=== PATIENT | male | born 1975 | race Caucasian/White ===

== ENCOUNTER 2017-08-31 09:04 | Emergency (ER) | payer BC ==
[2017-08-31 09:07] VITALS: BP 125/85; PULSE 76; RESP 18; TEMP 98.2
[2017-08-31] MEDS ORDERED: PROPARACAINE 0.5% OPHTH DROPS 15 ML BTL BOTH EYES STA (09:14)
[2017-08-31] MEDS ORDERED: ERYTHROMYCIN 5 MG/GM OPHTH OINT 3.5 GM TUBE BOTH EYES STA (09:15)
--- NOTE | 2017-08-31 09:15 | ED ---
Eye Problem HPI - General Chief complaint: Eye Problems Stated complaint: Eye Problems Source: patient, RN notes reviewed, old records reviewed Mode of arrival: ambulatory Limitations: no limitations - History of Present Illness Initial comments: This Patient is a 42-year-old male presents emergency department today chief complaint of left eye pain. 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 He believes that there is a piece of foreign body, metal within the eye. Patient states that his eye has been increasingly painful today and injected. No significant eye drainage. He does not wear contacts or glasses. Patient states that he has had increased blurry vision due to increased watering. Patient denies any other symptoms. - Related Data Previous Rx's Medication Instructions Recorded Erythromycin Ophth Oint [Romycin 1 applic LEFT EYE QID #1 tube 08/31/17 Ophth Oint] Allergies Allergy/AdvReac Type Severity Reaction Status Date / Time No Known Allergies Allergy Verified 08/31/17 09:08 Review of Systems ROS Statement: Those systems with pertinent positive or pertinent negative responses have been documented in the HPI. ROS Other: All systems not noted in ROS Statement are negative. Past Medical History Past Medical History: Asthma History of Any Multi-Drug Resistant Organisms: None Reported Past Surgical History: Orthopedic Surgery Additional Past Surgical History / Comment(s): Bilateral knee arthroscopy, Vasectomy Past Anesthesia/Blood Transfusion Reactions: No Reported Reaction Past Psychological History: No Psychological Hx Reported Smoking Status: Former smoker Past Alcohol Use History: Occasional Past Drug Use History: None Reported General Exam - General Exam Comments Initial Comments: 42-year-old male. Alert and oriented. No significant distress. Limitations: no limitations General appearance: alert, in no apparent distress Head exam: Present: atraumatic, normocephalic, normal inspection Eye exam: Present: PERRL, EOMI. Absent: normal appearance (Left eye has conjunctival injection. Evidence of metal foreign body fragment at the 6 o' clock position within the iris. No rust ring at this time.), scleral icterus, conjunctival injection, periorbital swelling ENT exam: Present: normal exam, mucous membranes moist Neck exam: Present: normal inspection. Absent: tenderness, meningismus, lymphadenopathy Respiratory exam: Present: normal lung sounds bilaterally. Absent: respiratory distress, wheezes, rales, rhonchi, stridor Cardiovascular Exam: Present: regular rate, normal rhythm, normal heart sounds. Absent: systolic murmur, diastolic murmur, rubs, gallop, clicks Psychiatric exam: Present: normal affect, normal mood Skin exam: Present: warm, dry, intact, normal color. Absent: rash Course Vital Signs 08/31/17 09:04 Temperature 98.2 F Pulse Rate 76 Respiratory 18 Rate Blood Pressure 125/85 O2 Sat by Pulse 97 Oximetry Medical Decision Making - Medical Decision Making This is a 42-year-old male presents emergency Department that she played a foreign body within the left eye. He has a small piece middle the 6 o'clock position. This was visualized with fluorescein eye stain and [place]. Was able to remove the entire foreign body with the [place] brush. Patient tolerated the procedure well. We will put the Patient on erythromycin eye ointment. He' ll be on every 4 hours. Discussed follow-up with ophthalmology if symptoms continue to persist or worsen. Patient agrees to treat plan will comply. Return parameters were discussed. Disposition Clinical Impression: Foreign body of left eye Disposition: HOME SELF-CARE Condition: Good Instructions: Eye Foreign Body (ED) Additional Instructions: Patient advised to apply the antibiotic ointment to the eye every 4 hours. Patient should follow-up with ophthalmology if symptoms continue to persist. Return to the emergency department if any alarming signs or symptoms occur. Prescriptions: Erythromycin Ophth Oint [Romycin Ophth Oint] 1 applic LEFT EYE QID #1 tube Is patient prescribed a controlled substance at d/c from ED?: No Referrals: Butch Zacarias DO [Primary Care Provider] - 1-2 days Angela Cagle MD [STAFF PHYSICIAN] - 1-2 days Time of Disposition: 09:41
== END 2017-08-31 09:48 | disposition home or self-care (01) ==
LOC: EC 09:04
DX: T15.92XA Foreign body on external eye, part unspecified, left eye, initial encounter (principal); Z87.891 Personal history of nicotine dependence
CPT/HCPCS: 65205; 99283

== ENCOUNTER 2018-07-23 04:59 | Emergency (ER) | payer BC ==
[2018-07-23 05:08] VITALS: BP 136/86; PULSE 74; RESP 20; TEMP 98.3
[2018-07-23] MEDS ORDERED: FLUORESCEIN STRIPS 1 MG STRIP LEFT EYE ONE (05:16)
[2018-07-23] MEDS ORDERED: PROPARACAINE 0.5% OPHTH DROPS 15 ML BTL LEFT EYE STA (05:16)
--- NOTE | 2018-07-23 05:18 | ED ---
Eye Problem HPI - General Chief complaint: Eye Problems Stated complaint: Eye Problems Time Seen by Provider: 07/23/18 05:16 Source: patient Mode of arrival: ambulatory Limitations: no limitations - History of Present Illness Initial comments: Adan is a 43 yo male who presents to the ER today for evaluation of left eye redness and foreign body sensation. patient reports that for about a week he has had the sensation of sand in his left eye. He has tried washing the eye out and continues to have the sensation. He denies any incident in which he recalls getting something in his eye. He believes he just woke feeling like this one morning. He denies any trauma. He denies pain with movement of the eye or pain/pressure of the eye. He has not been using any eye drops, he is not a contact wearer. MD chief complaint: eye pain, eye redness Onset/Timin -: week(s) Location: left eye Place: home If Injury: none Eye Symptoms: redness, foreign body sensation Severity: mild Consistency: constant Associated Symptoms: none Treatments Prior to Arrival: none - Related Data Allergies Allergy/AdvReac Type Severity Reaction Status Date / Time No Known Allergies Allergy Verified 08/31/17 09:38 Review of Systems ROS Statement: Those systems with pertinent positive or pertinent negative responses have been documented in the HPI. ROS Other: All systems not noted in ROS Statement are negative. Past Medical History Past Medical History: Asthma History of Any Multi-Drug Resistant Organisms: None Reported Past Surgical History: Orthopedic Surgery Additional Past Surgical History / Comment(s): Bilateral knee arthroscopy, Vasectomy Past Anesthesia/Blood Transfusion Reactions: No Reported Reaction Past Psychological History: No Psychological Hx Reported Smoking Status: Former smoker Past Alcohol Use History: Rare Past Drug Use History: None Reported General Exam Limitations: no limitations General appearance: alert, in no apparent distress Head exam: Present: atraumatic, normocephalic Eye exam: Present: PERRL, EOMI, conjunctival injection. Absent: scleral icterus, nystagmus, periorbital swelling, periorbital tenderness Pupils: Present: normal accommodation Expanded Eyelids: Normal Inspection: Left (well healed surgical repair of droopy eyelid) Pupils: Regular, Round: Bilateral, Reactive: Bilateral Sclera/Conjunctival: Injection: Left ENT exam: Present: normal exam Neck exam: Present: full ROM. Absent: lymphadenopathy Respiratory exam: Absent: respiratory distress Cardiovascular Exam: Present: regular rate GI/Abdominal exam: Absent: distended Rectal exam: Present: deferred Extremities exam: Present: full ROM Back exam: Present: full ROM Neurological exam: Present: alert, oriented X3 Psychiatric exam: Present: normal affect, normal mood Skin exam: Present: warm, dry, intact Course Vital Signs 07/23/18 05:04 Temperature 98.3 F Pulse Rate 74 Respiratory 20 Rate Blood Pressure 136/86 O2 Sat by Pulse 93 L Oximetry Medical Decision Making - Medical Decision Making patient was seen and evaluated, history obtained from patient hx of foreign body sensation x1 week exam with conjunctiva injection, erythema otherwise unremarkable orellana light exam with no corneal abrasion, possible keratitis - patient denies any sun/bright light/welding exposure, denies chemical exposure Will treat with erythromycin ointment and referral to optho for follow up PAtient expressed understanding and agreement with plan Disposition Clinical Impression: Keratoconjunctivitis Disposition: HOME SELF-CARE Condition: Stable Instructions (If sedation given, give patient instructions): Eye Lubricant (Into the eye) Is patient prescribed a controlled substance at d/c from ED?: No Referrals: Butch Zacarias DO [Primary Care Provider] - 1-2 days Mauricio Greer MD [STAFF PHYSICIAN] - 1-2 days
[2018-07-23] MEDS ORDERED: ERYTHROMYCIN 5 MG/GM OPHTH OINT 3.5 GM TUBE LEFT EYE STA (05:38)
== END 2018-07-23 06:12 | disposition home or self-care (01) ==
LOC: EC 04:59
DX: H16.202 Unspecified keratoconjunctivitis, left eye (principal); Z87.891 Personal history of nicotine dependence
CPT/HCPCS: 99283

== ENCOUNTER 2019-06-05 12:32 | Emergency (ER) | payer BC ==
--- NOTE | 2019-06-05 13:14 | XR ---
EXAMINATION TYPE: XR wrist complete RT DATE OF EXAM: 06/05/2019 CLINICAL HISTORY: Pain for several weeks. TECHNIQUE: Frontal, lateral, scaphoid, and oblique images of the right wrist are obtained. COMPARISON: None FINDINGS: There is no acute fracture/dislocation evident in the right wrist. The joint spaces in th e right wrist appear within normal limits. The overlying soft tissue appears unremarkable. IMPRESSION: As above.
[2019-06-05] MEDS ORDERED: KETOROLAC 30 MG/ML 1 ML VIAL IM STA (13:24)
[2019-06-05] MEDS ORDERED: ACET/COD 300 MG/30 MG STARTER PACK 6 TAB BTL PO STA (13:24)
--- NOTE | 2019-06-05 13:24 | ED ---
Upper Extremity HPI - General Chief Complaint: Extremity Injury, Upper Stated Complaint: right wrist Time Seen by Provider: 06/05/19 12:41 Source: patient Mode of arrival: ambulatory Limitations: no limitations - History of Present Illness Initial Comments: 44-year-old male presenting today for chief complaint of right wrist pain he denies any trauma denies a redness and swelling. Denies any hand or forearm pain he states it mostly occurs with supination. Patient states is not as present with pronation. Patient denies any specific pain with movement of the thumb. Patient denies any recent trauma or falls. Patient denies any history of gout. Patient denies any history of carpal tunnel denies any numbness tingling loss sensation coolness or pallor of the extremity. Patient has no additional complaints, upon arrival he appears well no distress. - Related Data Allergies Allergy/AdvReac Type Severity Reaction Status Date / Time No Known Allergies Allergy Verified 06/05/19 12:41 Review of Systems ROS Statement: Those systems with pertinent positive or pertinent negative responses have been documented in the HPI. ROS Other: All systems not noted in ROS Statement are negative. Past Medical History Past Medical History: Asthma Additional Past Medical History / Comment(s): obesity History of Any Multi-Drug Resistant Organisms: None Reported Past Surgical History: Orthopedic Surgery Additional Past Surgical History / Comment(s): Bilateral knee arthroscopy, Vasectomy Past Anesthesia/Blood Transfusion Reactions: No Reported Reaction Past Psychological History: No Psychological Hx Reported Smoking Status: Former smoker Past Alcohol Use History: Rare Past Drug Use History: None Reported General Exam - General Exam Comments Initial Comments: CGeneral: The patient is awake and alert, in no distres Eye: +3 mm pupils are equal, round and reactive to light, extra-ocular movements are intact. No nystagmus. There is normal conjunctiva bilaterally. No signs of icterus. Cardiovascular: There is a regular rate and rhythm. No murmur, rub or gallop is appreciated. Respiratory: Lungs are clear to auscultation, respirations are non-labored, breath sounds are equal. No wheezes, stridor, rales, or rhonchi. Musculoskeletal: Normal inspection of the wrist bilaterally no redness or swelling. Pain with supination of the left wrist no pain with the right wrist no pain with pronation negative Laurent. Normal ROM of wrist b/l. Strength 5/5. Sensation intact. Radial pulses equal bilaterally 2+. No pain at the elbow or shoulder. Patient is able to make the okay fingers crossed thumbs-up and oppose the small digit and thumb Neurological: A&O x 3. CN II-XII intact grossly, There are no obvious motor or sensory deficits. Coordination appears grossly intact. Speech is normal. Skin: Skin is warm and dry and no rashes or lesions are noted. Psychiatric: Cooperative, appropriate mood & affect, normal judgment. Limitations: no limitations Course Vital Signs 06/05/19 06/05/19 12:39 13:42 Temperature 98.4 F 98.2 F Pulse Rate 72 71 Respiratory 18 16 Rate Blood Pressure 152/102 145/88 O2 Sat by Pulse 96 98 Oximetry Medical Decision Making - Medical Decision Making 44-year-old male presenting today for chief complaint of wrist pain. XR (-). No swelling/redness. Neurovascularly intact. [facility] and [facility]opedic follow-up. Disposition Clinical Impression: Wrist pain Disposition: HOME SELF-CARE Condition: Good Instructions (If sedation given, give patient instructions): Wrist Injury (ED) Additional Instructions: Please use medication as discussed. Please follow-up with family doctor in the next 2 days, and orthopedic surgery in the next week. May wear over the counter splint for comfort. Please return to emergency room if the symptoms increase or worsen or for any other concerns. Is patient prescribed a controlled substance at d/c from ED?: No Referrals: Butch Zacarias DO [Primary Care Provider] - 1-2 days Galen Ramirez DO [Doctor of Osteopathic Medicine] - 1-2 days Time of Disposition: 13:24
[2019-06-05 13:43] VITALS: BP 145/88; PULSE 71; RESP 16; TEMP 98.2
== END 2019-06-05 13:42 | disposition home or self-care (01) ==
LOC: EC 12:32
DX: M25.531 Pain in right wrist (principal); M25.532 Pain in left wrist; E66.9 Obesity, unspecified; Z87.891 Personal history of nicotine dependence; Z68.41 Body mass index [BMI] 40.0-44.9, adult; Z98.890 Other specified postprocedural states
CPT/HCPCS: 73110; 99283; 96372; J1885

== ENCOUNTER 2020-05-19 01:25 | Emergency (ER) | payer BC ==
[2020-05-19 01:38] VITALS: PULSE 70; RESP 18; TEMP 97.8
--- NOTE | 2020-05-19 02:19 | XR ---
EXAM: XR Bilateral Ankles Complete, 3 or More Views CLINICAL HISTORY: ITS.REASON XR Reason: pain TECHNIQUE: Frontal, lateral and oblique views of the bilateral ankles. COMPARISON: No relevant prior studies available. FINDINGS: Bones/joints: The ankle mortise joint is intact bilaterally. No acute fracture or dislocation is seen. 3 mm plantar calcaneal enthesophyte on the left. There are small enthesophytes at the Achilles tendon insertion bilaterally. Mild osteoarthritic narrowing and osteophytosis of the talonavicular joint bilaterally. Soft tissues: There is soft tissue swelling surrounding the ankle bilaterally. IMPRESSION: Mild soft tissue swelling at the ankles bilaterally and mild-arthritic changes. No acute fracture or dislocation seen in either ankle.
[2020-05-19] MEDS ORDERED: KETOROLAC 15 MG/ML 1 ML VIAL IM STA (02:22)
--- NOTE | 2020-05-19 02:26 | ED ---
Extremity Problem HPI - General Chief complaint: Extremity Problem,Nontraumatic Stated complaint: Bilateral ankle pain Time Seen by Provider: 05/19/20 02:05 Source: patient Mode of arrival: ambulatory Limitations: no limitations - History of Present Illness Initial comments: Patient is a 44-year-old male presenting to the emergency Department with compl aints of bilateral ankle pain that started increasing over the past month. Patient states he went on vacation this weekend and did a lot more walking and is having a lot more pain. He describes the pain as posterior ankle around his distal Achilles, is having some mild swelling. He denies any falls or trauma, no previous ankle fractures or injuries. Denies pain in his calves although he states they feel tight. He denies any chest pain, shortness of breath, cough. He denies any fevers or chills. He has no further complaints at this time. - Related Data Previous Rx's Medication Instructions Recorded Ibuprofen [Motrin] 600 mg PO Q8HR PRN #30 tab 05/19/20 Allergies Allergy/AdvReac Type Severity Reaction Status Date / Time No Known Allergies Allergy Verified 05/19/20 01:38 Review of Systems ROS Statement: Those systems with pertinent positive or pertinent negative responses have been documented in the HPI. ROS Other: All systems not noted in ROS Statement are negative. Past Medical History Past Medical History: Asthma Additional Past Medical History / Comment(s): obesity History of Any Multi-Drug Resistant Organisms: None Reported Past Surgical History: Orthopedic Surgery Additional Past Surgical History / Comment(s): Bilateral knee arthroscopy, Vasectomy Past Anesthesia/Blood Transfusion Reactions: No Reported Reaction Past Psychological History: No Psychological Hx Reported Smoking Status: Never smoker Past Alcohol Use History: Rare Past Drug Use History: None Reported General Exam - General Exam Comments Initial Comments: GENERAL: Patient is well-developed and well-nourished. Patient is nontoxic and in no acute distress. HEAD: Atraumatic, normocephalic. EYES: Pupils equal round and reactive to light, extraocular movements intact, sclera anicteric, conjunctiva are normal. Eyelids were unremarkable. ENT: Nares patent, oropharynx clear without exudates. Moist mucous membranes. NECK: Normal range of motion, supple without lymphadenopathy or JVD. LUNGS: Unlabored respirations. Breath sounds clear to auscultation bilaterally and equal. No wheezes rales or rhonchi. HEART: Regular rate and rhythm without murmurs, rubs or gallops. ABDOMEN: Soft, nontender, normoactive bowel sounds. No guarding, no rebound. No masses appreciated. : Deferred MUSCULOSKELETAL: Patient has full active range of motion of his bilateral ankles, he does have some pain with palpation of the distal Achilles. No deformity or step and swelling. He has neurovascular intact of bilateral lower extremities. No clubbing or cyanosis. NEUROLOGICAL: Patient is alert and oriented x 3. Symmetrical smile. Normal speech, normal gait. PSYCH: Normal mood, normal affect. SKIN: Warm, Dry, normal turgor, no rashes or lesions noted. Limitations: no limitations Course Vital Signs 05/19/20 01:33 Temperature 97.8 F Pulse Rate 70 Respiratory 18 Rate Blood Pressure 161/100 O2 Sat by Pulse 95 Oximetry Medical Decision Making - Medical Decision Making Patient is a 44-year-old male here with bilateral posterior ankle pain for the last month, increased over the past few days after doing a lot of walking of medication this weekend. His pain is distal Achilles, consistent with bilateral Achilles tendinitis. X-rays reveal no acute fractures dislocations. I discussed these findings with the patient. Patient will be given Toradol here in the ER, recommended continuing with ibuprofen at home. He can follow up with orthopedics if symptoms persist. He is stable for discharge. Disposition Clinical Impression: Achilles tendonitis, bilateral, Bilateral ankle pain Disposition: HOME SELF-CARE Condition: Stable Instructions (If sedation given, give patient instructions): Achilles Tendinitis (ED) Additional Instructions: Please return to the Emergency Department if symptoms worsen or any other concerns. Recommend anti-inflammatories such as ibuprofen or Aleve for any discomfort. May apply ice to the area, I recommended stretching daily. Follow up with orthopedics if symptoms persist. Prescriptions: Ibuprofen [Motrin] 600 mg PO Q8HR PRN #30 tab PRN Reason: Pain Is patient prescribed a controlled substance at d/c from ED?: No Referrals: Butch Zacarias DO [Primary Care Provider] - 1-2 days Blair Ramirez DO [Doctor of Osteopathic Medicine] - 1-2 days Time of Disposition: 02:26
[2020-05-19 02:38] VITALS: BP 162/98
== END 2020-05-19 02:38 | disposition home or self-care (01) ==
LOC: EC 01:25
DX: M76.62 Achilles tendinitis, left leg (principal); M76.61 Achilles tendinitis, right leg; M25.572 Pain in left ankle and joints of left foot; M25.571 Pain in right ankle and joints of right foot; J45.909 Unspecified asthma, uncomplicated; E66.9 Obesity, unspecified; Z68.41 Body mass index [BMI] 40.0-44.9, adult
CPT/HCPCS: 73610; 99283; 96372; J1885

== ENCOUNTER 2020-09-06 16:15 | Emergency (ER) | payer BC ==
[2020-09-06 16:19] VITALS: TEMP 98.1
[2020-09-06] MEDS ORDERED: atenoloL 25 MG TAB PO STA (16:40)
--- NOTE | 2020-09-06 16:42 | ED ---
General Adult HPI - General Chief complaint: Arrhythmia/Palpitations Stated complaint: High BP Time Seen by Provider: 09/06/20 16:21 Source: patient, family, RN notes reviewed Mode of arrival: ambulatory Limitations: no limitations - History of Present Illness Initial comments: Patient is a pleasant 45-year-old male presenting to the emergency Department with palpitations. Palpitations have been intermittent over the past couple of days. Patient feels maybe a little bit fatigued as well. Patient took blood pressure at home prior to arrival reading of 207/112. No chest pain. No dyspnea. Patient did have sensation of palpitations during EKG however does not have any at this time. Patient denies any history of high blood pressure previously however admits she does not go to the doctor frequently. - Related Data Previous Rx's Medication Instructions Recorded Ibuprofen [Motrin] 600 mg PO Q8HR PRN #30 tab 05/19/20 atenoloL [Atenolol] 25 mg PO DAILY #7 tablet 09/06/20 Allergies Allergy/AdvReac Type Severity Reaction Status Date / Time No Known Allergies Allergy Verified 09/06/20 16:19 Review of Systems ROS Statement: Those systems with pertinent positive or pertinent negative responses have been documented in the HPI. ROS Other: All systems not noted in ROS Statement are negative. Constitutional: Denies: fever Eyes: Denies: eye pain ENT: Denies: ear pain Respiratory: Denies: cough, dyspnea Cardiovascular: Reports: palpitations. Denies: chest pain Endocrine: Reports: fatigue Gastrointestinal: Denies: abdominal pain Genitourinary: Denies: dysuria Musculoskeletal: Denies: back pain Skin: Denies: rash Neurological: Denies: weakness Past Medical History Past Medical History: Asthma Additional Past Medical History / Comment(s): obesity History of Any Multi-Drug Resistant Organisms: None Reported Past Surgical History: Orthopedic Surgery Additional Past Surgical History / Comment(s): Bilateral knee arthroscopy, Vasectomy Past Anesthesia/Blood Transfusion Reactions: No Reported Reaction Past Psychological History: No Psychological Hx Reported Smoking Status: Never smoker Past Alcohol Use History: Rare Past Drug Use History: None Reported General Exam Limitations: no limitations General appearance: alert, in no apparent distress Head exam: Present: atraumatic Eye exam: Present: normal appearance Neck exam: Present: normal inspection Respiratory exam: Present: normal lung sounds bilaterally Cardiovascular Exam: Present: regular rate, normal rhythm Expanded Peripheral pulses: 2+: Radial (R), Radial (L), Dorsalis Pedis (R), Dorsalis Pedis (L) GI/Abdominal exam: Present: soft. Absent: tenderness Extremities exam: Present: normal inspection. Absent: pedal edema, calf tenderness Neurological exam: Present: alert Psychiatric exam: Present: normal affect, normal mood Skin exam: Present: normal color Course Vital Signs 09/06/20 09/06/20 16:16 16:49 Temperature 98.1 F Pulse Rate 76 74 Respiratory 16 18 Rate Blood Pressure 156/96 150/103 O2 Sat by Pulse 97 97 Oximetry EKG Findings - EKG Comments: EKG Findings:: Sinus rhythm with rate of 70. PVCs present. VA 188. QRS 102. QT 390. QTC 421. Normal axis. Normal QRS. No acute ST change. Medical Decision Making - Medical Decision Making Patient reevaluated and improved. Blood pressure 120/80. Patient and family updated on results and need for follow-up. - Lab Data Result diagrams: 09/06/20 16:42 09/06/20 16:42 Lab Results 09/06/20 09/06/20 09/06/20 Range/Units 16:42 16:42 16:42 WBC 9.3 (3.8-10.6) k/uL RBC 4.98 (4.30-5.90) m/uL Hgb 14.7 (13.0-17.5) gm/dL Hct 43.0 (39.0-53.0) % MCV 86.4 (80.0-100.0) fL MCH 29.5 (25.0-35.0) pg MCHC 34.1 (31.0-37.0) g/dL RDW 12.8 (11.5-15.5) % Plt Count 287 (150-450) k/uL MPV 7.3 Neutrophils % 65 % Lymphocytes % 24 % Monocytes % 5 % Eosinophils % 2 % Basophils % 1 % Neutrophils # 6.0 (1.3-7.7) k/uL Lymphocytes # 2.2 (1.0-4.8) k/uL Monocytes # 0.4 (0-1.0) k/uL Eosinophils # 0.2 (0-0.7) k/uL Basophils # 0.1 (0-0.2) k/uL PT 10.5 (9.0-12.0) sec INR 1.0 (<1.2) APTT 27.4 (22.0-30.0) sec Sodium 140 (137-145) mmol/L Potassium 3.9 (3.5-5.1) mmol/L Chloride 105 (98-107) mmol/L Carbon Dioxide 27 (22-30) mmol/L Anion Gap 8 mmol/L BUN 14 (9-20) mg/dL Creatinine 0.73 (0.66-1.25) mg/dL Est GFR (CKD-EPI)AfAm >90 (>60 ml/min/1.73 sqM) Est GFR (CKD-EPI)NonAf >90 (>60 ml/min/1.73 sqM) Glucose 115 H (74-99) mg/dL Calcium 9.6 (8.4-10.2) mg/dL Magnesium 2.1 (1.6-2.3) mg/dL Total Bilirubin 0.2 (0.2-1.3) mg/dL AST 31 (17-59) U/L ALT 42 (4-49) U/L Alkaline Phosphatase 110 (38-126) U/L Troponin I (0.000-0.034) ng/mL Total Protein 7.1 (6.3-8.2) g/dL Albumin 4.3 (3.5-5.0) g/dL Free T4 0.84 (0.78-2.19) ng/dL Free T3 pg/mL 3.6 (2.8-5.3) pg/ml 09/06/20 Range/Units 16:42 WBC (3.8-10.6) k/uL RBC (4.30-5.90) m/uL Hgb (13.0-17.5) gm/dL Hct (39.0-53.0) % MCV (80.0-100.0) fL MCH (25.0-35.0) pg MCHC (31.0-37.0) g/dL RDW (11.5-15.5) % Plt Count (150-450) k/uL MPV Neutrophils % % Lymphocytes % % Monocytes % % Eosinophils % % Basophils % % Neutrophils # (1.3-7.7) k/uL Lymphocytes # (1.0-4.8) k/uL Monocytes # (0-1.0) k/uL Eosinophils # (0-0.7) k/uL Basophils # (0-0.2) k/uL PT (9.0-12.0) sec INR (<1.2) APTT (22.0-30.0) sec Sodium (137-145) mmol/L Potassium (3.5-5.1) mmol/L Chloride (98-107) mmol/L Carbon Dioxide (22-30) mmol/L Anion Gap mmol/L BUN (9-20) mg/dL Creatinine (0.66-1.25) mg/dL Est GFR (CKD-EPI)AfAm (>60 ml/min/1.73 sqM) Est GFR (CKD-EPI)NonAf (>60 ml/min/1.73 sqM) Glucose (74-99) mg/dL Calcium (8.4-10.2) mg/dL Magnesium (1.6-2.3) mg/dL Total Bilirubin (0.2-1.3) mg/dL AST (17-59) U/L ALT (4-49) U/L Alkaline Phosphatase (38-126) U/L Troponin I <0.012 (0.000-0.034) ng/mL Total Protein (6.3-8.2) g/dL Albumin (3.5-5.0) g/dL Free T4 (0.78-2.19) ng/dL Free T3 pg/mL (2.8-5.3) pg/ml - Radiology Data Radiology results: image reviewed (Chest x-ray shows no acute process) Disposition Clinical Impression: Palpitations, Ventricular premature beats, Hypertension Disposition: HOME SELF-CARE Condition: Stable Instructions (If sedation given, give patient instructions): Heart Palpitations (ED), Hypertension (ED), Premature Ventricular Contractions (ED) Additional Instructions: Please do follow-up with your primary care physician in the next day or 2 for recheck. Prescription for medication has been sent to [facility] pharmacy. Return for chest pain, uncontrolled blood pressure, worsening or change in symptoms or other concerns. Prescriptions: atenoloL [Atenolol] 25 mg PO DAILY #7 tablet Is patient prescribed a controlled substance at d/c from ED?: No Referrals: Butch Zacarias DO [Primary Care Provider] - 1-2 days Time of Disposition: 17:37
[2020-09-06 16:50] LABS: Basophils # (A) 0.1 k/uL (0-0.2); Basophils % (A) 1 %; Eosinophils # (A) 0.2 k/uL (0-0.7); Eosinophils % (A) 2 %; HGB 14.7 gm/dL (13.0-17.5); Lymphocytes # (A) 2.2 k/uL (1.0-4.8); Lymphocytes % (A) 24 %; MCH 29.5 pg (25.0-35.0); MCHC 34.1 g/dL (31.0-37.0); MCV 86.4 fL (80.0-100.0); Mean Platelet Volume 7.3; Monocytes # (A) 0.4 k/uL (0-1.0); Monocytes % (A) 5 %; Neutrophils % (A) 65 %; Platelet Count 287 k/uL (150-450); RBC 4.98 m/uL (4.30-5.90); RDW 12.8 % (11.5-15.5); WBC 9.3 k/uL (3.8-10.6)
--- NOTE | 2020-09-06 17:01 | XR ---
EXAMINATION TYPE: XR chest 2V DATE OF EXAM: 09/06/2020 COMPARISON: Chest radiograph 07/24/2016 HISTORY: High blood pressure TECHNIQUE: Frontal and lateral views of the chest are obtained. FINDINGS: Cardiomediastinal silhouette appears within normal limits. No focal consolidation, pleural effusion, or pneumothorax. Visualized osseous structures and upper abdomen appear unremarkable. IMPRESSION: No acute cardiopulmonary process.
[2020-09-06 17:08] LABS: ALT 42 U/L (4-49); AST 31 U/L (17-59); African American GFR (CKD) >90 (>60 ml/min/1.73 sqM); Albumin 4.3 g/dL (3.5-5.0); Alkaline Phosphatase 110 U/L (38-126); Anion Gap 8 mmol/L; Blood Urea Nitrogen 14 mg/dL (9-20); Calcium 9.6 mg/dL (8.4-10.2); Carbon Dioxide 27 mmol/L (22-30); Chloride 105 mmol/L (98-107); Glucose 115 mg/dL (74-99); Magnesium 2.1 mg/dL (1.6-2.3); Non-African American GFR(CKD) >90 (>60 ml/min/1.73 sqM); Potassium 3.9 mmol/L (3.5-5.1); Sodium 140 mmol/L (137-145); Total Bilirubin 0.2 mg/dL (0.2-1.3); Total Protein 7.1 g/dL (6.3-8.2)
[2020-09-06 17:10] LABS: Partial Thromboplastin Time 27.4 sec (22.0-30.0); Prothrombin Time 10.5 sec (9.0-12.0)
[2020-09-06 17:25] LABS: T4, Free (Free Thyroxine) 0.84 ng/dL (0.78-2.19)
[2020-09-06 18:05] VITALS: BP 128/72; PULSE 72; RESP 22
== END 2020-09-06 17:55 | disposition home or self-care (01) ==
LOC: EC 16:15
DX: I49.3 Ventricular premature depolarization (principal); I10 Essential (primary) hypertension; J45.909 Unspecified asthma, uncomplicated; Z79.1 Long term (current) use of non-steroidal anti-inflammatories (NSAID); Z79.899 Other long term (current) drug therapy
CPT/HCPCS: 36415; 71046; 80053; 83735; 84439; 84443; 84481; 84484; 85025; 85610; 85730; 93005; 99285

== ENCOUNTER 2020-09-10 16:39 | Observation (INO) | payer BC ==
[2020-09-10] MEDS ORDERED: ASPIRIN 81 MG PO STA (16:59)
--- NOTE | 2020-09-10 17:02 | ED ---
General Adult HPI - General Chief complaint: Recheck/Abnormal Lab/Rx Stated complaint: High BP Time Seen by Provider: 09/10/20 16:45 Source: patient Mode of arrival: ambulatory Limitations: no limitations - History of Present Illness Initial comments: 45-year-old male presents to emergency Department with a chief complaint of high blood pressure, chest pressure and shortness of breath. Patient reports he was here several days ago for elevated blood pressure. States she was started on 25 mm or Tylenol. States after discharge, he continued taking medication his blood pressure has been under control but today he developed hypertension again with a blood pressure 183/133. Patient reports is also developed some chest pressure across the chest without any radiation. Also reports exertional dyspnea today. However, denies any cough lightheaded dizziness one-sided weakness or paresthesias, visual changes. States he takes his atenolol at 5:30 PM daily. Family history of early cardiac related events. Not a smoker. - Related Data Home Medications Medication Instructions Recorded Confirmed atenoloL [Atenolol] 25 mg PO DAILY@1730 09/10/20 09/10/20 Allergies Allergy/AdvReac Type Severity Reaction Status Date / Time No Known Allergies Allergy Verified 09/10/20 17:37 Review of Systems ROS Statement: Those systems with pertinent positive or pertinent negative responses have been documented in the HPI. ROS Other: All systems not noted in ROS Statement are negative. Past Medical History Past Medical History: Asthma, Hypertension Additional Past Medical History / Comment(s): obesity History of Any Multi-Drug Resistant Organisms: None Reported Past Surgical History: Orthopedic Surgery Additional Past Surgical History / Comment(s): Bilateral knee arthroscopy, Vasectomy Past Anesthesia/Blood Transfusion Reactions: No Reported Reaction Past Psychological History: No Psychological Hx Reported Smoking Status: Never smoker Past Alcohol Use History: Rare Past Drug Use History: None Reported General Exam Limitations: no limitations General appearance: alert, in no apparent distress, obese Head exam: Present: atraumatic, normocephalic, normal inspection Eye exam: Present: normal appearance, PERRL, EOMI Pupils: Present: normal accommodation ENT exam: Present: normal exam, normal oropharynx, mucous membranes moist Neck exam: Present: normal inspection, full ROM. Absent: tenderness, lymphadenopathy Respiratory exam: Present: normal lung sounds bilaterally. Absent: respiratory distress Cardiovascular Exam: Present: regular rate, normal rhythm, normal heart sounds. Absent: systolic murmur Extremities exam: Present: normal inspection, full ROM. Absent: tenderness Back exam: Present: normal inspection, full ROM Neurological exam: Present: alert, oriented X3 Psychiatric exam: Present: normal affect, normal mood Skin exam: Present: warm, dry, intact, normal color Course Vital Signs 09/10/20 09/10/20 09/10/20 16:40 17:42 18:12 Temperature 98.1 F Pulse Rate 82 72 81 Respiratory 16 18 18 Rate Blood Pressure 183/82 123/82 128/75 O2 Sat by Pulse 97 95 95 Oximetry 09/10/20 18:33 Temperature Pulse Rate 77 Respiratory 18 Rate Blood Pressure 123/77 O2 Sat by Pulse 98 Oximetry EKG Findings - EKG Comments: EKG Findings:: Sinus rhythm with occasional PVC. Ventricular rate 77, NH 166, QRS 102, QTC 432. Medical Decision Making - Medical Decision Making 45-year-old male presents to emergency Department with a chief complaint of high blood pressure, chest pressure and shortness of breath. Physical examination is unremarkable. EKG shows no acute ischemic changes. Chest x-ray is unremarkable. Negative cardiac workup. Negative d-dimer. Initial troponins are negative. No improvement in his symptoms after nitro. His blood pressures remain stable in the 120s/70s. He has not taken his atenolol dose today. Considering he has a return visit for the same chief complaint, he will be admitted for cardiac observation. Case discussed with who will admit the patient. Case discussed with Dr. Colby Cardiology consult - Lab Data Result diagrams: 09/10/20 17:37 09/10/20 17:37 Lab Results 09/10/20 09/10/20 09/10/20 Range/Units 17:37 17:37 17:37 WBC 9.9 (3.8-10.6) k/uL RBC 4.99 (4.30-5.90) m/uL Hgb 14.7 (13.0-17.5) gm/dL Hct 43.5 (39.0-53.0) % MCV 87.2 (80.0-100.0) fL MCH 29.4 (25.0-35.0) pg MCHC 33.7 (31.0-37.0) g/dL RDW 12.9 (11.5-15.5) % Plt Count 302 (150-450) k/uL MPV 7.1 Neutrophils % 61 % Lymphocytes % 27 % Monocytes % 5 % Eosinophils % 2 % Basophils % 1 % Neutrophils # 6.0 (1.3-7.7) k/uL Lymphocytes # 2.7 (1.0-4.8) k/uL Monocytes # 0.5 (0-1.0) k/uL Eosinophils # 0.2 (0-0.7) k/uL Basophils # 0.1 (0-0.2) k/uL PT 10.5 (9.0-12.0) sec INR 1.0 (<1.2) APTT 29.1 (22.0-30.0) sec D-Dimer 0.22 (<0.60) mg/L FEU Sodium 139 (137-145) mmol/L Potassium 4.0 (3.5-5.1) mmol/L Chloride 105 (98-107) mmol/L Carbon Dioxide 26 (22-30) mmol/L Anion Gap 8 mmol/L BUN 11 (9-20) mg/dL Creatinine 0.69 (0.66-1.25) mg/dL Est GFR (CKD-EPI)AfAm >90 (>60 ml/min/1.73 sqM) Est GFR (CKD-EPI)NonAf >90 (>60 ml/min/1.73 sqM) Glucose 111 H (74-99) mg/dL Calcium 9.4 (8.4-10.2) mg/dL Magnesium 2.1 (1.6-2.3) mg/dL Total Bilirubin 0.2 (0.2-1.3) mg/dL AST 33 (17-59) U/L ALT 45 (4-49) U/L Alkaline Phosphatase 112 (38-126) U/L Troponin I (0.000-0.034) ng/mL Total Protein 6.9 (6.3-8.2) g/dL Albumin 4.1 (3.5-5.0) g/dL 09/10/20 Range/Units 17:37 WBC (3.8-10.6) k/uL RBC (4.30-5.90) m/uL Hgb (13.0-17.5) gm/dL Hct (39.0-53.0) % MCV (80.0-100.0) fL MCH (25.0-35.0) pg MCHC (31.0-37.0) g/dL RDW (11.5-15.5) % Plt Count (150-450) k/uL MPV Neutrophils % % Lymphocytes % % Monocytes % % Eosinophils % % Basophils % % Neutrophils # (1.3-7.7) k/uL Lymphocytes # (1.0-4.8) k/uL Monocytes # (0-1.0) k/uL Eosinophils # (0-0.7) k/uL Basophils # (0-0.2) k/uL PT (9.0-12.0) sec INR (<1.2) APTT (22.0-30.0) sec D-Dimer (<0.60) mg/L FEU Sodium (137-145) mmol/L Potassium (3.5-5.1) mmol/L Chloride (98-107) mmol/L Carbon Dioxide (22-30) mmol/L Anion Gap mmol/L BUN (9-20) mg/dL Creatinine (0.66-1.25) mg/dL Est GFR (CKD-EPI)AfAm (>60 ml/min/1.73 sqM) Est GFR (CKD-EPI)NonAf (>60 ml/min/1.73 sqM) Glucose (74-99) mg/dL Calcium (8.4-10.2) mg/dL Magnesium (1.6-2.3) mg/dL Total Bilirubin (0.2-1.3) mg/dL AST (17-59) U/L ALT (4-49) U/L Alkaline Phosphatase (38-126) U/L Troponin I <0.012 (0.000-0.034) ng/mL Total Protein (6.3-8.2) g/dL Albumin (3.5-5.0) g/dL Disposition Clinical Impression: Chest pain Disposition: ADMITTED IP TO THIS HOSP Condition: Good Is patient prescribed a controlled substance at d/c from ED?: No Referrals: Butch Zacarias DO [Primary Care Provider] - 1-2 days Time of Disposition: 18:58
[2020-09-10 17:43] LABS: Basophils # (A) 0.1 k/uL (0-0.2); Basophils % (A) 1 %; Eosinophils # (A) 0.2 k/uL (0-0.7); Eosinophils % (A) 2 %; HCT 43.5 % (39.0-53.0); HGB 14.7 gm/dL (13.0-17.5); Lymphocytes # (A) 2.7 k/uL (1.0-4.8); Lymphocytes % (A) 27 %; MCH 29.4 pg (25.0-35.0); MCHC 33.7 g/dL (31.0-37.0); MCV 87.2 fL (80.0-100.0); Mean Platelet Volume 7.1; Monocytes # (A) 0.5 k/uL (0-1.0); Monocytes % (A) 5 %; Neutrophils % (A) 61 %; Platelet Count 302 k/uL (150-450); RBC 4.99 m/uL (4.30-5.90); RDW 12.9 % (11.5-15.5); WBC 9.9 k/uL (3.8-10.6)
[2020-09-10 17:57] LABS: ALT 45 U/L (4-49); AST 33 U/L (17-59); African American GFR (CKD) >90 (>60 ml/min/1.73 sqM); Albumin 4.1 g/dL (3.5-5.0); Alkaline Phosphatase 112 U/L (38-126); Anion Gap 8 mmol/L; Blood Urea Nitrogen 11 mg/dL (9-20); Calcium 9.4 mg/dL (8.4-10.2); Carbon Dioxide 26 mmol/L (22-30); Chloride 105 mmol/L (98-107); Glucose 111 mg/dL (74-99); Magnesium 2.1 mg/dL (1.6-2.3); Non-African American GFR(CKD) >90 (>60 ml/min/1.73 sqM); Sodium 139 mmol/L (137-145); Total Bilirubin 0.2 mg/dL (0.2-1.3); Total Protein 6.9 g/dL (6.3-8.2)
[2020-09-10 17:58] LABS: Partial Thromboplastin Time 29.1 sec (22.0-30.0); Prothrombin Time 10.5 sec (9.0-12.0)
[2020-09-10] MEDS: NITROGLYCERIN SL TABS 0.4 MG TAB SUBLINGUAL STA ×3 (18:17→18:33)
[2020-09-10] MEDS ORDERED: NITROGLYCERIN SL TABS 0.4 MG TAB SUBLINGUAL PRN (18:58)
--- NOTE | 2020-09-10 20:12 | XR ---
EXAMINATION TYPE: XR chest 2V DATE OF EXAM: 09/10/2020 COMPARISON: 09/06/2020 HISTORY: 45 years Male. STUDY INDICATION GIVEN: Chest Pain . TECHNIQUE: Frontal and lateral chest radiographs FINDINGS AND IMPRESSION: No focal airspace disease, pneumothorax or pleural effusion. The cardiomediastinal silhouette is within normal limit. No acute osseous abnormality. No significant change since study performed 09/06/2020.
[2020-09-11 08:31] VITALS: PULSE 68; RESP 16; TEMP 97.8
[2020-09-11] MEDS ORDERED: FAMOTIDINE 20 MG/2 ML VIAL IV SCH (09:00)
[2020-09-11] MEDS ORDERED: HEPARIN SODIUM,PORCINE/PF 5,000 UNIT/0.5 ML SYRINGE SQ SCH (09:00)
[2020-09-11] MEDS ORDERED: ASPIRIN 325 MG TAB PO SCH (09:00)
[2020-09-11] MEDS ORDERED: lisinopriL 10 MG TAB PO STA (10:11)
[2020-09-11] MEDS ORDERED: amLODIPine 5 MG TAB PO STA (10:17)
--- NOTE | 2020-09-11 10:56 | ECHOF ---
Referral Reason:cp MEASUREMENTS -------- HEIGHT: 193.0 cm WEIGHT: 170.1 kg BP: 120/76 RVIDd: 4.1 cm (< 3.3) IVSd: 1.3 cm (0.6 - 1.1) LVIDd: 5.2 cm (3.9 - 5.3) LVPWd: 1.3 cm (0.6 - 1.1) IVSs: 2.0 cm LVIDs: 3.5 cm LVPWs: 1.9 cm LAESV Index (A-L): 25.21 ml/m Ao Diam: 3.5 cm (2.0 - 3.7) AV Cusp: 1.7 cm (1.5 - 2.6) MV E Nick: 1.03 m/s MV DecT: 209 ms MV A Nick: 0.76 m/s MV E/A Ratio: 1.35 FINDINGS -------- Sinus rhythm. This was a technically difficult study with suboptimal views. The left ventricular size is normal. There is mild concentric left ventricular hypertrophy. Overa ll left ventricular systolic function is normal with, an EF between 55 - 60 %. The diastolic fillin g pattern is normal for the age of the patient 13.85. The right ventricle is moderately enlarged. Normal LA size by volume 22+/-6 ml/m2. The right atrial size is normal. 5.0mg of Lumason was utilized for enhancement of images Interatrial and interventricular septum intact. The aortic valve was not well visualized. There is no evidence of aortic regurgitation. There is no evidence of aortic stenosis. The mitral valve is normal. Mild mitral regurgitation is present. The tricuspid valve appears structurally normal. Mild tricuspid regurgitation present. Right vent ricular systolic pressure is normal at < 35 mmHg. The right ventricular systolic pressure, as measu red by Doppler, is {RVSP}. The pulmonic valve was not well visualized. There is no pulmonic regurgitation present. The aortic root size is normal. IVC Not well visulized. There is no pericardial effusion. CONCLUSIONS -------- 1. This was a technically difficult study with suboptimal views. 2. There is mild concentric left ventricular hypertrophy. 3. Overall left ventricular systolic function is normal with, an EF between 55 - 60 %. 4. The right ventricle is moderately enlarged. 5. Normal LA size by volume 22+/-6 ml/m2. 6. Mild mitral regurgitation is present. 7. Mild tricuspid regurgitation present. 8. There is no pericardial effusion. JAVASCRIPT UI DEVELOPER: Suzie Mota RDCS
[2020-09-11 11:02] VITALS: BP 152/103
--- NOTE | 2020-09-11 11:11 | CONS ---
CONSULTATION HISTORY OF PRESENT ILLNESS: Mr. Kwok is a 45-year-old male who has no prior history of cardiac disease who last weekend did not feel well, checked his blood pressure, it was elevated. He came into the emergency room and was noted to have significant elevation of his blood pressure and was initiated on atenolol 25 mg daily. Prior to that, he has not checked his blood pressure. Since that time he had a few days where he felt well, but yesterday he started to feel a fluttering in the chest with some chest heaviness and noted that his blood pressure was elevated and was mildly dyspneic. Because of that, he was admitted to the hospital. The patient is average in his exercise tolerance, has no exertional chest discomfort, has no significant dyspnea on exertion on a regular basis. No dizziness. He had palpitations recently. No PND. No orthopnea. No peripheral edema. He has history of obstructive sleep apnea and he uses his CPAP on a regular basis and he is relatively compliant with low salt intake. His coronary risk factors negative for history of diabetes or documented hyperlipidemia. He is a nonsmoker for a long time. MEDICATION: Medications at home include the atenolol 25 mg daily that was initiated recently. REVIEW OF SYSTEMS: Respiratory system: He has no recent wheezing. No cough. No history of documented obstructive lung disease. GI system: No recent GI bleeding. No peptic ulcer disease. system: No dysuria or hematuria. NERVOUS SYSTEM: No stroke or seizure. PHYSICAL EXAMINATION: He is a 45-year-old male, alert, oriented, in no apparent distress. Blood pressure running since admission in the 120s with a heart rate in 70s. HEAD: Normocephalic. Eyes sclerae anicteric. NECK: Good carotid upstroke. No bruit. No jugular venous distention. LUNGS: Clear to auscultation. HEART: Regular rate and rhythm S1, S2. No S3. No S4. No murmur or rub. ABDOMEN: Soft, nontender. Positive bowel sounds. No organomegaly. EXTREMITIES: No edema. Intact distal pulses. LAB DATA: Lab data revealed troponin less than 0.012 for 3 samples. BUN and creatinine 11 and 0.69. Potassium 4.0, hemoglobin 14.7. His EKG revealed a sinus mechanism with rare PVCs and early transition. Chest x-ray shows no acute infiltrate. IMPRESSION: 1. Chest discomfort has atypical features for ischemic heart disease probably noncardiac. 2. Hypertension recently diagnosed. His blood pressure is stable on his atenolol. 3. History of obstructive sleep apnea on CPAP. RECOMMENDATIONS: I recommend proceeding with a stress echocardiogram and a transthoracic echo to assess his status and guide his treatment and depending on results of testing, further recommendations will be made. Thank you for this consult. We will follow with you. MMODL / IJN: [id number] /
[2020-09-11 11:59] LABS: Chol/HDL Ratio 7.42
--- NOTE | 2020-09-11 12:59 | P.HPIM ---
History of Present Illness H&P Date: 09/11/20 Chief Complaint: Chest pain History and Physical and Discharge Summary This is a 45-year-old gentleman admitted with left-sided chest pressure/fl uttering, hypertension in a patient with history of chronic intermittent asthma, hypertension, obesity and multiple other medical issues. Patient states has been having fluctuating left-sided chest pressure since Monday. He initially presented to the ER on 09/06/2020 with complaints of fatigue, hypertension, palpitations. Systolic blood pressure in the 150s and was discharged with a prescription for atenolol. Patient stated symptoms improved until yesterday, when he began feeling left-sided chest fluttering sinus pressure accompanied by hypertension, denies diaphoreses,. Reports no increase in shortness of breathhas chronic occasional shortness of breath. Systolic blood pressure on admission 180s.Denies lightheadedness dizziness or focal deficits. EKG reported sinus rhythm with occasional PVC, troponins negative 3 .chest x-ray reporting no acute abnormality, no significant change from prior study of 09/06/2020. Hematology and coagulation profile is unremarkable. Chemistry remarkable the exception of glucose 111. Magnesium 2.1 .Triglycerides 562, cholesterol 178, HDL 24, LDL not calculated due to high triglycerides.Evaluated by cardiology and scheduled for stress test, echo. Review of Systems ROS Statement: Those systems with pertinent positive or pertinent negative responses have been documented in the HPI. ROS Other: All systems not noted in ROS Statement are negative. Past Medical History Past Medical History: Asthma, Hypertension Additional Past Medical History / Comment(s): obesity History of Any Multi-Drug Resistant Organisms: None Reported Past Surgical History: Orthopedic Surgery Additional Past Surgical History / Comment(s): Bilateral knee arthroscopy, Vasectomy Past Anesthesia/Blood Transfusion Reactions: No Reported Reaction Past Psychological History: No Psychological Hx Reported Smoking Status: Never smoker Past Alcohol Use History: Rare Past Drug Use History: None Reported Medications and Allergies Home Medications Medication Instructions Recorded Confirmed Type Fenofibrate Nanocrystallized 145 mg PO DAILY #30 tablet 09/11/20 Rx [Tricor] atenoloL [Atenolol] 25 mg PO DAILY@1730 #90 tab 09/11/20 Rx Allergies Allergy/AdvReac Type Severity Reaction Status Date / Time No Known Allergies Allergy Verified 09/10/20 17:37 Physical Exam Vitals: Vital Signs Temp Pulse Pulse Resp BP BP BP 09/11/20 11:01 159/92 09/11/20 08:00 68 16 09/11/20 07:00 97.8 F 68 16 145/90 09/11/20 02:00 86 09/11/20 01:48 97.7 F 73 18 120/76 09/10/20 21:43 98.5 F 86 18 124/81 09/10/20 20:00 65 18 107/70 09/10/20 19:00 72 18 122/75 09/10/20 18:33 77 18 123/77 09/10/20 18:12 81 18 128/75 09/10/20 17:42 72 18 123/82 09/10/20 16:40 98.1 F 82 16 183/82 BP Pulse Ox 09/11/20 11:01 152/103 09/11/20 08:00 09/11/20 07:00 96 09/11/20 02:00 09/11/20 01:48 97 09/10/20 21:43 96 09/10/20 20:00 95 09/10/20 19:00 96 09/10/20 18:33 98 09/10/20 18:12 95 09/10/20 17:42 95 09/10/20 16:40 97 Intake and Output 09/10/20 09/11/20 09/11/20 22:59 06:59 14:59 Intake Total 350 Balance 350 Intake: Oral 350 Other: # Voids 1 3 Weight 170.097 kg 170.1 kg PHYSICAL EXAM: VITAL SIGNS: As above GENERAL: Obese, Sitting up in bed, no acute distress HEENT: Conjunctivae normal. eyes normal. NECK: No JVD. No thyroid enlargement. No LNs CARDIOVASCULAR: S1, S2 regular.No murmur RESPIRATION: Breath sounds diminished in the bases. No rhonchi or crackles. No bronchial breathing. ABDOMEN: Soft, nontender. No guarding. no masses palpable. No ascites, No hepatosplenomegaly.Bowel sounds heard. LEGS: No edema. no swelling. No calf tenderness PSYCHIATRY: Alert and oriented X3, mood and affect normal. NERVOUS SYSTEM: Cranial N 2-12 grossly normal. Moves all 4 limbs. No focal deficits. Strength and sensation grossly intact.. Skin: Warm and dry, no rash Lymphatic system. No LN neck axilla. Results CBC & Chem 7: 08/05/21 17:37 09/10/20 17:37 Labs: Abnormal Lab Results - Last 24 Hours (Table) 09/10/20 09/10/20 Range/Units 17:37 17:37 Glucose 111 H (74-99) mg/dL Triglycerides 562.0 H (0.0-149.0) mg/dL HDL Cholesterol 24.0 L (40.0-60.0) mg/dL Thrombosis Risk Factor Assmnt - Choose All That Apply Any of the Below Risk Factors Present?: Yes Each Factor Represents 1 point: Obesity (BMI >25) Other Risk Factors: No Other congenital or acquired thrombophilia - If yes, enter type in comment: No Thrombosis Risk Factor Assessment Total Risk Factor Score: 1 Thrombosis Risk Factor Assessment Level: Low Risk Assessment and Plan Assessment: Chest pain, cardiology following Hypertriglyceridemia Hypertension Obstructive sleep apnea Morbid obesity, BMI 40.6 Plan: Continue on current medication regime ,monitoring and symptomatic treatment. Triglycerides in the 500s, TriCor initiated. Patient is scheduled for stress, echo. Patient may be discharged home pending stress/echo, final DC recommendations and clearance from cardiology. Discharge Medication List Fenofibrate Nanocrystallized [Tricor] 145 mg PO DAILY #30 tablet 09/11/20 [Rx] atenoloL [Atenolol] 25 mg PO DAILY@1730 #90 tab 09/11/20 [Rx] The impression and plan of care has been dictated as directed. : I performed a history and examination of this patient, discussed the same with the dictator. I agree with the dictator's note ,documented as a scribe. Any additional findings or plans will be noted.
[2020-09-11] MEDS ORDERED: FENOFIBRATE 160 MG TAB PO SCH (13:00)
[2020-09-11] MEDS ORDERED: atenoloL 25 MG TAB PO SCH (17:30)
--- NOTE | 2020-09-11 20:51 | ECHOS ---
STRESS ECHOCARDIOGRAM INDICATIONS: Chest pain BASELINE HEART RATE: 67 BASELINE BLOOD PRESSURE: 162/100 MAXIMUM HEART RATE: 154 MAXIMUM BLOOD PRESSURE: 240/83 85% MPHR: 150 100% MPHR: 177 METS: 7.7 MAXIMUM STAGE REACHED: 2 TOTAL EXERCISE TIME: 6:24 CLINICAL INFORMATION: Baseline rhythm is a sinus mechanism, rate of 67, normal axis and intervals, rare PVCs. Baseline blood pressure 162/100 mmHg. The patient exercised using Natanael protocol for 6 minute 24 seconds reaching peak rate of 154 beats per minute which is equal to 87% of maximum predicted heart rate. Peak blood pressure 240/83 mmHg. Test was terminated because of significant fatigue. There was no chest pain. Electrocardiograph monitoring revealed occasional single PVCs. There was no evidence of diagnostic ischemic ST deviation. FINDINGS: Baseline echocardiogram revealed normal wall thickness and wall motion. At peak exercise, there was normal wall motion augmentation without any hypokinesis or dyskinesis. CONCLUSION: 1. Decreased exercise tolerance with hypertensive response to exercise. 2. Occasional PVCs with rare couplets. 3. Normal electrocardiographic response to exercise. 4. Normal stress echocardiogram with no evidence of stress-induced ischemia. MMODL / IJN: [id number] /
[2020-09-11] MEDS ORDERED: FAMOTIDINE 20 MG TAB PO SCH (21:00)
[2020-09-12] MEDS ORDERED: ASPIRIN 81 MG PO SCH (09:00)
== END 2020-09-11 13:46 | disposition home or self-care (01) ==
LOC: EC 16:39 → 6NMEDSUR 18:59
PROVIDERS: ADMIT Family Medicine; ATTEND Family Medicine
DX: R07.89 Other chest pain (principal); I10 Essential (primary) hypertension; I49.3 Ventricular premature depolarization; J45.20 Mild intermittent asthma, uncomplicated; G47.33 Obstructive sleep apnea (adult) (pediatric); E78.1 Pure hyperglyceridemia; E66.01 Morbid (severe) obesity due to excess calories; Z68.42 Body mass index [BMI] 45.0-49.9, adult; Z79.899 Other long term (current) drug therapy; Z98.52 Vasectomy status; Z98.890 Other specified postprocedural states; Z82.49 Family history of ischemic heart disease and other diseases of the circulatory system
CPT/HCPCS: 96372; 96374; 99285; 36415; 93005; 93306; 93351; 85379; 80061; 80053; 83735; 84484; 85025; 85610; 85730; 83721; 71046; G0378 ×2; Q9950; J1644

== ENCOUNTER 2020-09-12 02:10 | Observation (INO) | payer BC ==
--- NOTE | 2020-09-12 02:35 | ED ---
Chest Pain HPI - General Chief Complaint: Chest Pain Stated Complaint: Chest Pain, High BP Time Seen by Provider: 09/12/20 02:19 Source: patient Mode of arrival: ambulatory - History of Present Illness MD Complaint: chest pain -: hour(s) Onset: during exertion Pain Location: left chest Pain Radiation: none Severity: moderate Quality: sharp Consistency: constant Improves With: nothing Worsens With: nothing Treatments Prior to Arrival: none - Related Data Previous Rx's Medication Instructions Recorded Fenofibrate Nanocrystallized 145 mg PO DAILY #30 tablet 09/11/20 [Tricor] atenoloL [Atenolol] 25 mg PO DAILY@1730 #90 tab 09/11/20 Allergies Allergy/AdvReac Type Severity Reaction Status Date / Time No Known Allergies Allergy Verified 09/12/20 02:17 Review of Systems ROS Statement: Those systems with pertinent positive or pertinent negative responses have been documented in the HPI. ROS Other: All systems not noted in ROS Statement are negative. Constitutional: Denies: fever, chills Respiratory: Denies: cough, dyspnea Cardiovascular: Reports: chest pain. Denies: palpitations, orthopnea, edema, syncope Gastrointestinal: Denies: abdominal pain, nausea, vomiting Genitourinary: Denies: dysuria, hematuria Musculoskeletal: Denies: back pain Skin: Denies: rash Neurological: Denies: headache, weakness, numbness EKG Findings - EKG Results: EKG: interpreted by KHANGD, sinus rhythm (Rate 77 bpm), normal axis, normal QRS, normal ST/T, no acute changes Past Medical History Past Medical History: Asthma Additional Past Medical History / Comment(s): obesity History of Any Multi-Drug Resistant Organisms: None Reported Past Surgical History: Orthopedic Surgery Additional Past Surgical History / Comment(s): Bilateral knee arthroscopy, Vasectomy Past Anesthesia/Blood Transfusion Reactions: No Reported Reaction Past Psychological History: No Psychological Hx Reported Smoking Status: Never smoker Past Alcohol Use History: Rare Past Drug Use History: None Reported General Exam General appearance: alert, in no apparent distress Head exam: Present: atraumatic, normocephalic Eye exam: Present: normal appearance. Absent: scleral icterus, conjunctival injection ENT exam: Present: normal oropharynx Neck exam: Present: normal inspection Respiratory exam: Present: normal lung sounds bilaterally. Absent: respiratory distress, wheezes, rales, rhonchi, stridor Cardiovascular Exam: Present: regular rate, normal rhythm, normal heart sounds. Absent: systolic murmur, diastolic murmur, rubs, gallop GI/Abdominal exam: Present: soft. Absent: distended, tenderness, guarding, rebound Extremities exam: Present: normal inspection, normal capillary refill. Absent: pedal edema, calf tenderness Back exam: Present: normal inspection Neurological exam: Present: alert Skin exam: Present: warm, dry, intact, normal color. Absent: rash Course Vital Signs 09/12/20 02:13 Temperature 98.8 F Pulse Rate 79 Respiratory 18 Rate Blood Pressure 161/92 O2 Sat by Pulse 98 Oximetry Disposition Referrals: Butch Zacarias DO [Primary Care Provider] - 1-2 days
--- NOTE | 2020-09-12 02:43 | XR ---
EXAMINATION TYPE: XR chest 2V DATE OF EXAM: 09/12/2020 COMPARISON: 09/10/2020 HISTORY: Chest pain TECHNIQUE: 2 views FINDINGS: Heart and mediastinum are normal. Lungs are clear. Diaphragm is normal. Bony thorax is inta ct. IMPRESSION: Normal chest. No change.
[2020-09-12 02:50] LABS: Basophils # (A) 0.1 k/uL (0-0.2); Basophils % (A) 1 %; Eosinophils # (A) 0.2 k/uL (0-0.7); Eosinophils % (A) 2 %; HCT 43.8 % (39.0-53.0); HGB 14.7 gm/dL (13.0-17.5); Lymphocytes # (A) 2.2 k/uL (1.0-4.8); Lymphocytes % (A) 23 %; MCH 29.3 pg (25.0-35.0); MCHC 33.5 g/dL (31.0-37.0); MCV 87.3 fL (80.0-100.0); Mean Platelet Volume 6.9; Monocytes # (A) 0.4 k/uL (0-1.0); Monocytes % (A) 4 %; Neutrophils # (A) 6.5 k/uL (1.3-7.7); Neutrophils % (A) 67 %; Platelet Count 315 k/uL (150-450); RBC 5.01 m/uL (4.30-5.90); RDW 13.3 % (11.5-15.5); WBC 9.6 k/uL (3.8-10.6)
[2020-09-12 02:51] LABS: ALT 47 U/L (4-49); AST 31 U/L (17-59); African American GFR (CKD) >90 (>60 ml/min/1.73 sqM); Albumin 4.2 g/dL (3.5-5.0); Alkaline Phosphatase 127 U/L (38-126); Amylase 58 U/L (30-110); Anion Gap 9 mmol/L; Blood Urea Nitrogen 13 mg/dL (9-20); Calcium 9.7 mg/dL (8.4-10.2); Carbon Dioxide 26 mmol/L (22-30); Chloride 104 mmol/L (98-107); Glucose 138 mg/dL (74-99); Lipase 62 U/L (23-300); Magnesium 1.9 mg/dL (1.6-2.3); Non-African American GFR(CKD) >90 (>60 ml/min/1.73 sqM); Potassium 4.3 mmol/L (3.5-5.1); Sodium 139 mmol/L (137-145); Total Bilirubin 0.2 mg/dL (0.2-1.3); Total Protein 7.1 g/dL (6.3-8.2)
[2020-09-12 03:00] LABS: Partial Thromboplastin Time 27.5 sec (22.0-30.0); Prothrombin Time 10.4 sec (9.0-12.0)
[2020-09-12] MEDS ORDERED: NITROGLYCERIN SL TABS 0.4 MG TAB SUBLINGUAL PRN (05:17)
[2020-09-12 08:10] VITALS: BP 125/77; PULSE 72; RESP 16; TEMP 97.4
[2020-09-12] MEDS ORDERED: RX INFO: IV CONTRAST WAS GIVEN 1 EACH MISC MISCELLANE PRN (08:23)
--- NOTE | 2020-09-12 11:35 | P.CRDCN ---
History of Present Illness Consult date: 09/12/20 History of present illness: HISTORY OF PRESENT ILLNESS: This is a 45-year-old male with a past medical history significant for morbid obesity and hypertension. Patient was recently started on atenolol last week for high blood pressure. 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 We have been asked see the patient for chest pain and elevated blood pressure. Patient underwent stress echocardiogram yesterday which was negative for ischemia. Patient also had an echocardiogram completed revealing ejection fraction 55-60%. Mild mitral regurgitation. Mild tricuspid regurgitation. The patient was discharged home yesterday. He states he went to work last night when he began having a headache and some chest discomfort. He states he usually has a symptoms when his blood pressure is high so he checked his blood pressure and it was found to be 190 systolic. Patient then presented to the ER for further evaluation. At the time of my examination, the patient denies chest pain or pressure. He denies shortness of breath. Patient's blood pressure this morning 125/77. EKG reveals sinus rhythm with no signs of acute ischemia Chest xray negative for acute process Laboratory data: WBC 9.6. Hemoglobin 14.7. Platelet count 315. D-dimer 0.37. Sodium 139. Potassium 4.3. BUN 13. Creatinine 0.81. Magnesium 1.9. Troponin negative 2. Current home cardiac medications include atenolol 25 mg daily and TriCor 145 mg daily REVIEW OF SYSTEMS: At the time of my exam: CONSTITUTIONAL: Denies fever or chills. HEENT: Denies blurred vision, vision changes, or eye pain. Denies hemoptysis CARDIOVASCULAR: Denies chest pain. Denies orthopnea. Denies PND. Denies palpitations RESPIRATORY: Denies shortness of breath. GASTROINTESTINAL: Denies abdominal pain. Denies nausea or vomiting. HEMATOLOGIC: Denies bleeding disorders. GENITOURINARY: Denies any blood in urine. SKIN: Denies pruitis. Denies rash. PHYSICAL EXAM: VITAL SIGNS: Reviewed. GENERAL: Well-developed in no acute distress. HEENT: Head is normocephalic. Pupils are equal, round. Sclerae anicteric. Mucous membranes of the mouth are moist. Neck supple. No JVD or thyromegaly LUNGS: Respirations even and unlabored. Lungs essentially clear to auscultation bilaterally. HEART: Regular rate and rhythm. S1 and S2 heard. ABDOMEN: Soft. Nondistended. Nontender. EXTREMITIES: Normal range of motion. No clubbing or cyanosis. Peripheral pulses intact. No lower extremity edema NEUROLOGIC: Awake and alert. Oriented x 3. ASSESSMENT: Chest pain, troponins negative 2, patient had negative stress test performed yesterday Hypertension, SBP 190s per patient, controlled while inpatient Elevated triglycerides PLAN: Obtain Chest CT for other possible etiology of chest discomfort Patient just underwent cardiac workup yesterday including echocardiogram and stress echocardiogram which was negative for ischemia Patient's blood pressure is controlled while in hospital with a systolic in the 120s. Patient may be discharged home today from a cardiac standpoint He is to continue his atenolol. We will add Norvasc 5 mg daily as needed for systolic blood pressure greater than 150 He is to follow up outpatient We'll sign off Please reconsult if needed. Nurse practitioner note has been reviewed by physician. Signing provider agrees with the documented findings, assessment, and plan of care. Past Medical History Past Medical History: Asthma Additional Past Medical History / Comment(s): obesity History of Any Multi-Drug Resistant Organisms: None Reported Past Surgical History: Orthopedic Surgery Additional Past Surgical History / Comment(s): Bilateral knee arthroscopy, Vasectomy Past Anesthesia/Blood Transfusion Reactions: No Reported Reaction Past Psychological History: No Psychological Hx Reported Smoking Status: Never smoker Past Alcohol Use History: Rare Past Drug Use History: None Reported Medications and Allergies Home Medications Medication Instructions Recorded Confirmed Type Fenofibrate Nanocrystallized 145 mg PO DAILY #30 tablet 09/11/20 09/12/20 Rx [Tricor] atenoloL [Atenolol] 25 mg PO DAILY@1730 #90 tab 09/11/20 09/12/20 Rx amLODIPine [Norvasc] 5 mg PO DAILY PRN #90 tab 09/12/20 Rx Allergies Allergy/AdvReac Type Severity Reaction Status Date / Time No Known Allergies Allergy Verified 09/12/20 07:27 Physical Exam Vitals: Vital Signs Temp Pulse Pulse Resp BP BP Pulse Ox 09/12/20 08:09 97.4 F L 72 16 125/77 96 09/12/20 06:22 98.0 F 67 18 132/73 95 09/12/20 05:16 68 16 117/68 95 09/12/20 03:55 74 18 110/64 95 09/12/20 02:13 98.8 F 79 18 161/92 98 Intake and Output 09/11/20 09/12/20 09/12/20 22:59 06:59 14:59 Other: Voiding Method Toilet Weight 170.097 kg Results 09/12/20 02:30 09/12/20 02:30 Cardiac Enzymes 09/12/20 09/12/20 09/12/20 Range/Units 02:30 02:30 05:41 AST 31 (17-59) U/L Troponin I <0.012 <0.012 (0.000-0.034) ng/mL Coagulation 09/12/20 Range/Units 02:30 PT 10.4 (9.0-12.0) sec APTT 27.5 (22.0-30.0) sec CBC 09/12/20 Range/Units 02:30 WBC 9.6 (3.8-10.6) k/uL RBC 5.01 (4.30-5.90) m/uL Hgb 14.7 (13.0-17.5) gm/dL Hct 43.8 (39.0-53.0) % Plt Count 315 (150-450) k/uL Comprehensive Metabolic Panel 09/12/20 Range/Units 02:30 Sodium 139 (137-145) mmol/L Potassium 4.3 (3.5-5.1) mmol/L Chloride 104 (98-107) mmol/L Carbon Dioxide 26 (22-30) mmol/L BUN 13 (9-20) mg/dL Creatinine 0.81 (0.66-1.25) mg/dL Glucose 138 H (74-99) mg/dL Calcium 9.7 (8.4-10.2) mg/dL AST 31 (17-59) U/L ALT 47 (4-49) U/L Alkaline Phosphatase 127 H (38-126) U/L Total Protein 7.1 (6.3-8.2) g/dL Albumin 4.2 (3.5-5.0) g/dL Current Medications Generic Name Dose Route Start Last Admin Trade Name Freq PRN Reason Stop Dose Admin Miscellaneous Information 1 each 09/12/20 08:23 Rx Info: Iv Contrast Was Given 1 Each Misc MISCELLANE 09/14/20 08:23 DAILY PRN Per Protocol Nitroglycerin 0.4 mg 09/12/20 05:17 09/12/20 05:53 Nitroglycerin Sl Tabs 0.4 Mg Tab SUBLINGUAL 0.4 mg Q5M PRN Administration Chest Pain Intake and Output 09/11/20 09/12/20 09/12/20 22:59 06:59 14:59 Other: Voiding Method Toilet Weight 170.097 kg 09/12/20 02:30 09/12/20 02:30
--- NOTE | 2020-09-12 12:23 | P.HPIM ---
History of Present Illness 45-year-old male came in with complaints of elevated blood pressure and chest pain moderate severity sharp in nature and nonradiating lasted for a few minutes, nonpleuritic not associated with diaphoresis or shortness of breath, not associated with nausea not associated with food. The patient may have had [place] spelled the chest pain patient was discharged yesterday after the stress test. Patient had a normal echocardiogram. Patient does says his blood pressure went up to 190 systolic yesterday although his blood pressure remained stable here at . Patient is on atenolol. Patient had EKG and troponins which were all within normal limits chest x-ray did not show any significant abnormality I counseled that the normal fluctuations in blood pressure is physiologic will not need any other additional medications. Patient was asked to check blood pressures twice a day and take it to PCPs office where primary care patient will have a chance to titrate his medications. REVIEW OF SYSTEMS: CONSTITUTIONAL: No fever, no malaise, no fatigue. HEENT: No recent visual problems or hearing problems. Denied any sore throat. CARDIOVASCULAR: No chest pain, orthopnea, PND, no palpitations, no syncope. PULMONARY: No shortness of breath, no cough, no hemoptysis. GASTROINTESTINAL: No diarrhea, no nausea, no vomiting, no abdominal pain. NEUROLOGICAL: No headaches, no weakness, no numbness. HEMATOLOGICAL: Denies any bleeding or petechiae. GENITOURINARY: Denies any burning micturition, frequency, or urgency. MUSCULOSKELETAL/RHEUMATOLOGICAL: Denies any joint pain, swelling, or any muscle pain. ENDOCRINE: Denies any polyuria or polydipsia. The rest of the 14-point review of systems is negative. PHYSICAL EXAMINATION: GENERAL: The patient is alert and oriented x3, not in any acute distress. Well developed, well nourished. HEENT: Pupils are round and equally reacting to light. EOMI. No scleral icterus. No conjunctival pallor. Normocephalic, atraumatic. No pharyngeal erythema. No thyromegaly. CARDIOVASCULAR: S1 and S2 present. No murmurs, rubs, or gallops. PULMONARY: Chest is clear to auscultation, no wheezing or crackles. ABDOMEN: Soft, nontender, nondistended, normoactive bowel sounds. No palpable organomegaly. MUSCULOSKELETAL: No joint swelling or deformity. EXTREMITIES: No cyanosis, clubbing, or pedal edema. NEUROLOGICAL: Gross neurological examination did not reveal any focal deficits. SKIN: No rashes. Assessment and plan -Chest pain: Atypical probably musculoskeletal patient had a stress test yesterday which was negative, patient was evaluated by cardiology patient will be discharged today -Concerns of elevated blood pressure: Patient probably has periodic elevations o f blood pressure will not need any other additional medications as his blood pressure remains stable and within controlled here during the hospitalization just with atenolol. -Obesity -Asthma without any acute exacerbation Past Medical History Past Medical History: Asthma Additional Past Medical History / Comment(s): obesity History of Any Multi-Drug Resistant Organisms: None Reported Past Surgical History: Orthopedic Surgery Additional Past Surgical History / Comment(s): Bilateral knee arthroscopy, Vasectomy Past Anesthesia/Blood Transfusion Reactions: No Reported Reaction Past Psychological History: No Psychological Hx Reported Smoking Status: Never smoker Past Alcohol Use History: Rare Past Drug Use History: None Reported Medications and Allergies Home Medications Medication Instructions Recorded Confirmed Type Fenofibrate Nanocrystallized 145 mg PO DAILY #30 tablet 09/11/20 09/12/20 Rx [Tricor] atenoloL [Atenolol] 25 mg PO DAILY@1730 #90 tab 09/11/20 09/12/20 Rx amLODIPine [Norvasc] 5 mg PO DAILY PRN #90 tab 09/12/20 Rx Allergies Allergy/AdvReac Type Severity Reaction Status Date / Time No Known Allergies Allergy Verified 09/12/20 07:27 Physical Exam Vitals: Vital Signs Temp Pulse Pulse Resp BP BP Pulse Ox 09/12/20 08:09 97.4 F L 72 16 125/77 96 09/12/20 06:22 98.0 F 67 18 132/73 95 09/12/20 05:16 68 16 117/68 95 09/12/20 03:55 74 18 110/64 95 09/12/20 02:13 98.8 F 79 18 161/92 98 Intake and Output 09/11/20 09/12/20 09/12/20 22:59 06:59 14:59 Other: Voiding Method Toilet Weight 170.097 kg Results CBC & Chem 7: 09/12/20 02:30 09/12/20 02:30 Labs: Abnormal Lab Results - Last 24 Hours (Table) 09/12/20 Range/Units 02:30 Glucose 138 H (74-99) mg/dL Alkaline Phosphatase 127 H (38-126) U/L Thrombosis Risk Factor Assmnt - Choose All That Apply Any of the Below Risk Factors Present?: Yes Each Factor Represents 1 point: Age 41-60 years, Obesity (BMI >25) Other Risk Factors: No Other congenital or acquired thrombophilia - If yes, enter type in comment: No Thrombosis Risk Factor Assessment Total Risk Factor Score: 2 Thrombosis Risk Factor Assessment Level: Low Risk
--- NOTE | 2020-09-12 12:24 | P.DS ---
Providers Date of admission: 09/12/20 05:19 Attending physician: Christiano Loco Consults: 09/12/20 05:17 Consult Physician Routine Consulting Provider: Dre Wilhelm Consult Reason/Comments: chest pain Do you want consulting provider notified?: Yes Primary care physician: Butch Zacarias [facility] Course: Please refer to history of present illness for further details Plan - Discharge Summary Discharge Rx Participant: Yes New Discharge Prescriptions: New amLODIPine [Norvasc] 5 mg PO DAILY PRN #90 tab PRN Reason: Blood Pressure - High Continue atenoloL [Atenolol] 25 mg PO DAILY@1730 #90 tab No Action Fenofibrate Nanocrystallized [Tricor] 145 mg PO DAILY #30 tablet Discharge Medication List Fenofibrate Nanocrystallized [Tricor] 145 mg PO DAILY #30 tablet 09/11/20 [Rx] atenoloL [Atenolol] 25 mg PO DAILY@1730 #90 tab 09/11/20 [Rx] amLODIPine [Norvasc] 5 mg PO DAILY PRN #90 tab 09/12/20 [Rx] Follow up Appointment(s)/Referral(s): Amy Chaudhari MD [STAFF PHYSICIAN] - 1 Week Butch Zacarias DO [Primary Care Provider] - 3 Days Discharge Disposition: HOME SELF-CARE
--- NOTE | 2020-09-12 12:57 | CT ---
EXAMINATION TYPE: CT chest w con DATE OF EXAM: 09/12/2020 COMPARISON: None HISTORY: Chest pain, SOB CT DLP: 1075.4 mGycm, Automated exposure control for dose reduction was used. CONTRAST: Performed injected with 100 mL of Isovue 300. TECHNIQUE: Axial images were obtained at 5 mm thick sections. Reconstructed images are reviewed on [employer] computer in the coronal plane. FINDINGS: Portion of the thyroid visualized is normal. No suspicious lung nodules or focal infiltrates are present. No enlarged mediastinal or hilar adenopathy is evident. There are scattered small shotty lymph node s present within the stomach. The ascending aorta diameter at the level of the main pulmonary artery is 3.8 cm. The main pulmonary artery diameter at the bifurcation is 3.[address] sections are obtained through the upper abdomen. Indication is within the liver. Upper abdomen is otherwise unremarkable IMPRESSIONS: 1. No acute pulmonary process.
[2020-09-13] MEDS ORDERED: ASPIRIN 325 MG TAB PO SCH (09:00)
== END 2020-09-12 14:00 | disposition home or self-care (01) ==
LOC: EC 02:10 → 6NMEDSUR 05:19
PROVIDERS: ADMIT Hospitalist; ATTEND Hospitalist
DX: R07.89 Other chest pain (principal); I10 Essential (primary) hypertension; E66.9 Obesity, unspecified; Z68.42 Body mass index [BMI] 45.0-49.9, adult; E78.1 Pure hyperglyceridemia; J45.909 Unspecified asthma, uncomplicated; Z79.899 Other long term (current) drug therapy; Z98.52 Vasectomy status
CPT/HCPCS: 99285; 36415; 93005; 85379; 83880; 80053; 82150; 83690; 83735; 84484; 85025; 85610; 85730; 71046; 71260; G0378; Q9967

== ENCOUNTER → 2021-05-28 | Outpatient (CLI) | payer BC, OTHER ==
--- NOTE | 2021-05-30 11:25 | XR ---
Lumbar spine HISTORY: Low back pain 3 views of the lumbar spine Lumbar vertebral bodies show preserved height, alignment, and bone mineralization. Sclerosis is prese nt in the posterior elements. Suspect a transitional vertebral body at the lumbosacral junction. Loss of disc height is present at L5-S1. There is associated spondylosis. IMPRESSION: Degenerative disc disease and facet arthropathy.
== END | disposition home or self-care (01) ==
LOC: RADXRMAIN 16:54
PROVIDERS: ATTEND Family Medicine
DX: M47.816 Spondylosis without myelopathy or radiculopathy, lumbar region (principal); M51.37 Other intervertebral disc degeneration, lumbosacral region
CPT/HCPCS: 72100

== ENCOUNTER → 2023-06-29 | Outpatient (CLI) | payer BC, OTHER ==
--- NOTE | 2023-06-29 22:04 | XR ---
EXAMINATION TYPE: XR foot complete RT DATE OF EXAM: 06/29/2023 COMPARISON: None HISTORY: Pain in right ankle and joints TECHNIQUE: Three-view right foot FINDINGS: No acute fractures or dislocations. Joint spaces are preserved. Achilles tendon calcaneal h eel spur is present. Follow-up studies can be performed 7-10 days from acute trauma for continued pain. IMPRESSION: 1. No acute osseous abnormality right foot
--- NOTE | 2023-06-29 22:05 | XR ---
EXAMINATION TYPE: XR ankle complete RT DATE OF EXAM: 06/29/2023 COMPARISON: None HISTORY: Ankle pain TECHNIQUE: Three-view right ankle FINDINGS: There soft tissue swelling over the right lateral malleolus. Ankle mortise appears intact. No acute fractures or dislocations evident. Achilles tendon calcaneal heel spur is present. Follow up exams can be performed 7-10 days from acute trauma for continued pain. IMPRESSION: 1. Soft tissue swelling lateral malleolus.
== END | disposition home or self-care (01) ==
LOC: RADXRMAIN 16:32
PROVIDERS: ATTEND Family Medicine
DX: M79.89 Other specified soft tissue disorders (principal); M25.571 Pain in right ankle and joints of right foot

== ENCOUNTER 2023-09-22 00:38 | Emergency (ER) | payer BC ==
[2023-09-22] MEDS ORDERED: KETOROLAC 15 MG/ML 1 ML VIAL ONE (01:40)
--- NOTE | 2023-10-24 07:49 | XR ---
Patient Adan Kwok ID [id number] Order # EXAMINATION TYPE: XR forearm LT DATE OF EXAM: 09/22/2023 COMPARISON: No comparison available on downtime PACS. HISTORY: Swelling, history of gout TECHNIQUE: 2 view left forearm FINDINGS: No acute fracture or dislocation is evident. Soft tissues appear normal. No suspicious soft tissue calcifications evident. Joint spaces appear preserved. Follow up exams can be performed as clinically indicated. IMPRESSION: 1. No acute osseous abnormality left forearm
--- NOTE | 2023-10-24 07:49 | XR ---
Patient Adan Kwok ID [id number] Order # EXAMINATION TYPE: XR elbow complete LT DATE OF EXAM: 09/22/2023 COMPARISON: No comparison available on downtime PACS. HISTORY: Swelling, history of gout TECHNIQUE: 3 view left elbow FINDINGS: No acute fracture or dislocation evident. Anterior fat pad is normal. No elevation of poste rior fat pad is evident. Radius aligns normally with the humerus. No suspicious calcifications identi fied. Soft tissues appear within normal limits. Follow up exams can be performed as clinically indicated. IMPRESSION: 1. No acute osseous abnormality left elbow
== END 2023-09-22 04:45 | disposition home or self-care (01) ==
LOC: EC 00:38
DX: L03.114 Cellulitis of left upper limb (principal)
CPT/HCPCS: 36415; 85652; 96374; 99283

== ENCOUNTER → 2024-04-30 | Outpatient (CLI) | payer BC ==
--- NOTE | 2024-04-30 07:20 | MR ---
EXAMINATION TYPE: MR knee RT wo con DATE OF EXAM: 04/30/2024 COMPARISON: Prior MRI right knee January 16, 2024. Right knee x-ray February 16, 2024 HISTORY: Rt knee medial pain, effusion, and swelling for 6 months. History of prior surgery TECHNIQUE: Multiplanar, multisequence images of the knee is performed without IV contrast. FINDINGS: Current exam slightly suboptimal as there is artifact identified MEDIAL MENISCUS: Anterior and posterior horns are intact without tear. LATERAL MENISCUS: Truncated appearance to the anterior horn is consistent with interval surgical sotelo ge. The remnant posterior horn is intact. There is lateral extrusion of the lateral meniscus with darion e increased signal in the remnant body coronal image 27. CRUCIATE LIGAMENTS: The anterior and posterior cruciate ligaments are intact and unremarkable. COLLATERAL LIGAMENTS: The medial collateral ligament and lateral collateral ligament complex are inta ct. Lateral bulging of the lateral collateral ligament is noted. EXTENSOR MECHANISM: Visualized quadriceps and patellar tendons are intact. EFFUSION: Persistent moderate-sized suprapatellar joint effusion. POPLITEAL CYST: No popliteal/daily cyst. TRICOMPARTMENT SPACES: Mild/moderate tricompartment narrowing and spurring most prominent in the schmitz llofemoral compartment. CARTILAGE: No significant chondromalacia patella. Tricompartment articular cartilage is preserved. BONE MARROW SIGNAL: No focal abnormal marrow signal is appreciated. OTHER: No additional significant abnormality is appreciated. IMPRESSION: 1. Interval surgery to the lateral meniscus. There is suspected subtle new tear in the remnant body. 2. Stable moderate-sized suprapatellar joint effusion. 3. 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 [facility], , 04/30/2024 7:17 AM
== END | disposition home or self-care (01) ==
LOC: RADMRIMAIN 06:02
PROVIDERS: ATTEND Orthopaedic Surgery
DX: M23.8X1 Other internal derangements of right knee (principal); M17.11 Unilateral primary osteoarthritis, right knee; M25.461 Effusion, right knee